=== PATIENT | female | born 2000 | race Caucasian/White ===

== ENCOUNTER 2021-10-18 19:38 | Emergency (ER) | payer OTHER ==
[2021-10-18] MEDS ORDERED: Ketorolac Tromethamine 30 MG/ML VIAL ONE (21:32)
== END 2021-10-18 22:44 | disposition home or self-care (01) ==
LOC: CSHERS 19:38
DX: S00.03XA Contusion of scalp, initial encounter (principal); S80.02XA Contusion of left knee, initial encounter; S70.02XA Contusion of left hip, initial encounter; S50.12XA Contusion of left forearm, initial encounter; V89.2XXA Person injured in unspecified motor-vehicle accident, traffic, initial encounter
CPT/HCPCS: 70450; 96372; J1885

== ENCOUNTER 2021-10-19 20:11 | Emergency (ER) | payer OTHER ==
[2021-10-19] MEDS ORDERED: diphenhydrAMINE 50 MG/ML VIAL ONE (21:28)
[2021-10-19] MEDS ORDERED: Dexamethasone 10 MG/ML VIAL ONE (21:28)
[2021-10-19] MEDS ORDERED: Ketorolac Tromethamine 30 MG/ML VIAL ONE (21:28)
[2021-10-19] MEDS ORDERED: Metoclopramide HCl 10 MG/2 ML VIAL ONE (21:28)
[2021-10-19] MEDS ORDERED: Ondansetron PF 4 MG/2 ML Vial ONE (21:29)
== END 2021-10-19 22:43 | disposition home or self-care (01) ==
LOC: CSHERS 20:11
DX: F07.81 Postconcussional syndrome (principal); R11.10 Vomiting, unspecified
CPT/HCPCS: 96365; 96375; J1100; J1200; J1885; J2405; J2765